=== PATIENT | male | born 1945 | race Caucasian/White ===

== ENCOUNTER → 2017-03-12 | Outpatient (CLI) | payer MEDICARE | LOC: GMAL 10:19 | PROVIDERS: ATTEND Family Medicine | DX: Z12.5 Encounter for screening for malignant neoplasm of prostate (principal) ==

== ENCOUNTER → 2017-06-28 | Outpatient (CLI) | payer OTHER | END | disposition home or self-care (01) | LOC: GMAL 17:05 | PROVIDERS: ATTEND Family Medicine | DX: M10.9 Gout, unspecified (principal) ==

== ENCOUNTER → 2017-07-09 | Outpatient (CLI) | payer OTHER | END | disposition home or self-care (01) | LOC: GMAL 10:57 | PROVIDERS: ATTEND Family Medicine | DX: D51.3 Other dietary vitamin B12 deficiency anemia (principal); E55.9 Vitamin D deficiency, unspecified; E29.8 Other testicular dysfunction ==

== ENCOUNTER → 2019-05-01 | Outpatient (CLI) | payer OTHER ==
--- NOTE | 2019-05-01 20:16 | US ---
EXAM DESCRIPTION: Gall Bladder: ULTRASOUND. CLINICAL HISTORY: ABD PN. Right upper quadrant. COMPARISON: None. TECHNIQUE: Transabdominal scanning: Montesinos-scale and Doppler modes. FINDINGS: Gallbladder: Small and contains a mobile 1.5 cm echogenic stone with acoustic shadowing. No fluid around the gallbladder. No wall thickening. 2.7 mm. Non-tender with transducer pressure. Common bile duct: caliber 5.7 mm within normal limits. Liver: Increased echogenicity; contour liver capsule smooth where seen. No fluid around the liver. Intrahepatic biliary ducts normal caliber. Doppler hepatopedal flow portal vein.. Long axis right lobe 18.1 cm. Pancreas: normal size and echogenicity. Duct not seen. Aorta: Proximal diameter 1.7 cm. Right kidney: 10.6 cm Long axis. Increased cortical echogenicity but less than the liver. Cortical thickness 1.4 cm. Capsule slightly lobulated. No hydronephrosis, no echogenic stones, no perirenal fluid.. IMPRESSION: 1. Multiple gallstones in the gallbladder consistent with cholelithiasis. Nontender with transducer pressure. No wall thickening or surrounding fluid. Normal caliber of the common bile duct. 2. Steatosis of the liver and mild to moderate hepatomegaly. Normal vascularity in caliber of the intrahepatic ducts. Smooth capsule with no ascites. Pancreas is negative. 3. Age-related changes in the right kidney with no echogenic stones or hydronephrosis. Electronically signed by: Pablo Diaz MD 05/01/2019 8:15 PM CDT
== END ==
LOC: US 09:27
PROVIDERS: ATTEND Family Medicine
DX: K80.20 Calculus of gallbladder without cholecystitis without obstruction (principal); K76.0 Fatty (change of) liver, not elsewhere classified

== ENCOUNTER 2019-05-07 05:56 | Day surgery (SDC) | payer OTHER ==
[2019-05-07] MEDS ORDERED: ceFAZolin SODIUM 1 GM VIAL ONE (08:41)
[2019-05-07] MEDS ORDERED: SODIUM CHL 0.9% 100ML MINI-BAG 100 ML IVPB ONE (08:41)
[2019-05-07] MEDS ORDERED: LACTATED RINGERS 1,000 ML ONE ×2 (08:41→12:23)
--- NOTE | 2019-05-07 09:18 | RAD ---
EXAM DESCRIPTION: Chest,2 Views CLINICAL HISTORY: 73 years Male, pre op COMPARISON: Radiographs the chest dated 07/29/2018. TECHNIQUE: PA and lateral radiographs of the chest were obtained. FINDINGS: Trachea is midline.The cardiomediastinal silhouette is normal in size. The pulmonary vasculature is within normal limits.The lungs are clear with no acute consolidation.No evidence of pleural effusions.No evidence of pneumothorax. IMPRESSION: No acute cardiopulmonary process. Electronically signed by: Qi Villegas MD 05/07/2019 9:16 AM CDT
[2019-05-07] MEDS ORDERED: SCOPOLAMINE PATCH 1.5MG 1 EA TD ONE ×2 (09:29→09:35)
[2019-05-07] MEDS ORDERED: LACTATED RINGERS 1,000 ML IVS ONE (09:35)
[2019-05-07] MEDS ORDERED: BUPIVACAINE 0.25% W/EPI 50 ML VIAL INJ ONE ×3 (10:11→11:15)
[2019-05-07] MEDS ORDERED: HEPARIN SODIUM (PORCINE) 10,000 UNITS/ML VIAL ONE (10:11)
[2019-05-07] MEDS ORDERED: MIDAZOLAM INJ 2 MG/2 ML VIAL ONE (10:24)
[2019-05-07] MEDS ORDERED: fentaNYL CITRATE INJ 50 MCG/ML AMP ONE ×2 (10:24→12:38)
[2019-05-07] MEDS ORDERED: ROCURONIUM BROMIDE 10 MG/ML VIAL ONE ×2 (10:24→10:25)
[2019-05-07] MEDS ORDERED: SUGAMMADEX SODIUM 200 MG/2 ML VIAL IV ONE (10:24)
[2019-05-07] MEDS ORDERED: ceFAZolin SODIUM 1 GM VIAL IVPB ONE (10:57)
[2019-05-07] MEDS ORDERED: HEPARIN SODIUM (PORCINE) 10,000 UNITS/ML VIAL IRRIG ONE (11:22)
[2019-05-07] MEDS ORDERED: PROPOFOL 200 MG/20 ML VIAL IV ONE (12:00)
[2019-05-07] MEDS ORDERED: ONDANSETRON INJ 4 MG/2 ML VIAL IV ONE (12:00)
[2019-05-07] MEDS ORDERED: DEXAMETHASONE INJ 10 MG/ML VIAL IV ONE (12:00)
[2019-05-07] MEDS ORDERED: LIDOCAINE 1% 10 ML VIAL INJ ONE (12:00)
--- NOTE | 2019-05-07 13:10 | RAD ---
PROVIDED CLINICAL HISTORY/REASON FOR EXAM: CHOLECYSTECTOMY Findings/impression: Two intraoperative fluoroscopic cholangiogram images. No stricture or filling defect identified. Dose: Not provided Time: Not provided Electronically signed by: Sage So MD 05/07/2019 1:09 PM CDT
--- NOTE | 2019-05-07 13:45 | OP ---
DATE OF PROCEDURE: 05/07/19 PROCEDURE: 1. Laparoscopic cholecystectomy with intraoperative cholangiography using fluoroscopy. SURGEON: Brayan Cardoza MD. INDICATION: The patient is a 73-year-old male who several weeks ago developed upper abdominal pain on the right side. He has a history of cardiac disease, so he was originally seen to rule out cardiac etiology and, in fact, underwent a cardiac cath which revealed nothing consistent to produce these symptoms. He then obtained an ultrasound which revealed gallstones with no signs of acute cholecystitis and a mildly dilated bile duct, but no elevation of his liver function tests. After the risks, benefits and alternatives to cholecystectomy were discussed and accepted, the patient was brought to the Surgical Suite for cholecystectomy with cholangiography and possible wedge biopsy of the liver due to the ultrasound being consistent with fatty infiltration of the liver. FINDINGS: The gallbladder wall was mildly thickened, not exquisitely distended. There were adhesions to the neck of the gallbladder. Intraoperative cholangiography revealed free flow into the duodenum with no filling defects or strictures identified. The liver did not appear to have significant fatty infiltration of the liver, so no biopsy was performed. DESCRIPTION OF PROCEDURE: After the patient was brought to the Surgical Suite and placed in supine position, he underwent general anesthesia. The patient was prepped and draped in the usual sterile manner. Surgical time-out was taken. The supraumbilical area was infiltrated with local anesthesia. A vertical incision was made with a sharp knife. Dissection was carried down through the skin and subcutaneous tissue using electrocautery and the midline fascia was identified. Traction sutures were placed on either side of the midline. A small incision was made in the midline fascia and the peritoneum was opened bluntly using blunt dissection. Kong trocar was introduced under direct vision into the abdominal cavity and fixed in place with the 20 cc balloon. When this was done, CO2 was insufflated until a pressure of 12 mmHg was reached and the abdomen was tympanitic in all four quadrants. When this was done, the laparoscope was introduced. The abdomen was inspected with the previously noted findings. The patient was then placed in reverse Trendelenburg position and turned to the left side. The upper abdominal ports were placed under direct vision. The gallbladder was grasped, retracted anteriorly and laterally. The neck of the gallbladder was retracted laterally. The triangle of Calot was then explored with the cystic duct and cystic artery identified. The cystic duct was hemoclipped once proximally. A small incision was made in the cystic duct. The cholangiogram catheter was introduced through a separate stab wound in the right upper quadrant, introduced into the cystic duct and clipped in place. Cholangiograms were then taken using fluoroscopy which revealed free flow into the duodenum with no filling defects or strictures noted. At this time, the cystic duct was hemoclipped three times distally and the cystic duct catheter was removed. The cystic duct was divided sharply. The cystic artery which had been bluntly dissected free was then clipped twice proximally and once distally and divided between the hemoclips. The gallbladder was then dissected free from the gallbladder bed of the liver using electrocautery. The gallbladder was placed in an EndoCatch bag and removed from the supraumbilical port site in the usual manner under direct vision. When this was done, the port was replaced at the supraumbilical area. The gallbladder bed was inspected. The subhepatic space and subphrenic space were irrigated copiously with saline. The effluent was noted to be clear. The gallbladder bed of the liver had good hemostasis. The helder hepatis was inspected and there was no bile leak or bleeding identified. At this point, the upper abdominal ports were removed under direct vision and good hemostasis was noted. The CO2, the laparoscope and the supraumbilical port were removed. The supraumbilical port site fascia was approximated with a single [id number] suture of 0 Vicryl. Subcutaneous tissue was irrigated with saline. The subcutaneous tissue at the supraumbilical area was approximated with a single Vicryl suture. Skin edges were approximated with 4-0 Vicryl subcuticular sutures, benzoin and Steri-Strips. Sterile dressings were applied. The patient was awakened and taken to the Recovery Room in good and stable condition. Estimated blood loss was less than 25 mL. All sponge, needle and instrument counts were correct. #[id number] [facility]
[2019-05-07 14:25] VITALS: BP 116/68; TEMP 97.1; O2SAT 96
== END 2019-05-07 14:35 | disposition home or self-care (01) ==
LOC: AMB 05:56
PROVIDERS: ATTEND Surgery
DX: K80.10 Calculus of gallbladder with chronic cholecystitis without obstruction (principal); K82.8 Other specified diseases of gallbladder; I10 Essential (primary) hypertension; D51.9 Vitamin B12 deficiency anemia, unspecified; M10.9 Gout, unspecified; K21.9 Gastro-esophageal reflux disease without esophagitis; I25.10 Atherosclerotic heart disease of native coronary artery without angina pectoris; I25.2 Old myocardial infarction; Z95.5 Presence of coronary angioplasty implant and graft; Z79.82 Long term (current) use of aspirin; Z79.02 Long term (current) use of antithrombotics/antiplatelets; Z79.899 Other long term (current) drug therapy
CPT/HCPCS: 00790; 36416; 47563; 71046; 74300; 82948; 88304; 93005; J0690; J1100; J1644; J2250; J2405; J3010; J3490; J7050; J7120

== ENCOUNTER → 2019-08-18 | Outpatient (CLI) | payer OTHER | LOC: GMAL 10:28 | PROVIDERS: ATTEND Family Medicine | DX: D51.3 Other dietary vitamin B12 deficiency anemia (principal); E55.9 Vitamin D deficiency, unspecified; I10 Essential (primary) hypertension; E11.9 Type 2 diabetes mellitus without complications; E78.49 Other hyperlipidemia; Z12.5 Encounter for screening for malignant neoplasm of prostate | CPT/HCPCS: 82306; 82607; G0103 ==

== ENCOUNTER → 2020-10-25 | Outpatient (CLI) | payer MEDICARE | LOC: GMAL 16:37 | PROVIDERS: ATTEND Family Medicine | DX: R30.0 Dysuria (principal); I10 Essential (primary) hypertension ==